=== PATIENT | male | born 1940 | race Caucasian/White ===

== ENCOUNTER → 2019-12-07 08:55 | Outpatient (CLI) | payer MEDICARE, OTHER, SELFPAY ==
--- NOTE | 2019-12-07 | DI.RAD.S_ITS ---
PROCEDURE: XR CHEST 2V INDICATIONS: ABNORMAL EKG,HEART MURMUR, DIZZINESS TECHNIQUE: 2 views of the chest were acquired. COMPARISON: None. FINDINGS: Surgical changes and devices: None. Lungs and pleura: Lungs are clear. No pleural effusions or pneumothorax. Mediastinum: Mediastinal contours are normal. Heart size is normal. Bones and chest wall: No suspicious bony abnormalities. Soft tissues appear unremarkable. IMPRESSION: No acute disease Dictated by: Sreekanth Allen M.D. on 12/07/2019 at 10:43 Approved by: Sreekanth Allen M.D. on 12/07/2019 at 10:44
--- NOTE | 2019-12-07 16:13 | DI.ECHO.S_ITS ---
Echocardiogram Report + + :Name: LIZA ZAPATA Study Date: 12/07/2019 Height: 71 in : :[facility] Weight: 201 lb : : Gender: Male BSA: 2.1 m2 : :: 1940 Age: 79 yrs BP: 150/76 mmHg: :Reason For Study: Dizziness : : Performed By: Daniela Solano : :Referring: ROSALVA REYNOLDS : + + Interpretation Summary Mild concentric left ventricular hypertrophy with ejection fraction 65-70%. Grade I diastolic dysfunction. Severely dilated left atrium. Moderately dilated right atrium. Mild aortic stenosis. Mildly enlarged ascending aorta and aortic arch. The right ventricular systolic pressure is estimated to be at least 45 mmHg based on an estimated right atrial pressure of 3 mm Hg. Procedure: A two-dimensional transthoracic echocardiogram with color flow and Doppler was performed. The study quality was technically adequate. There is no prior echocardiogram noted for this patient. The patient had a bundle branch block rhythm during the exam. The patient was in normal sinus rhythm during the exam. Left Ventricle: The left ventricle is normal in size. There is mild concentric left ventricular hypertrophy. There is no ventricular septal defect visualized. The ejection fraction is estimated to be 65-70%. There are no focal wall motion abnormalities. Diastolic parameters suggest a relaxation abnormality of the left ventricle, consistent with probable normal filling pressures. Right Ventricle: The right ventricle is at the upper limits of normal in size. The right ventricular systolic function is normal. Atria: The left atrium is severely dilated. The right atrium is moderately dilated. There is no Doppler evidence for an interatrial shunt. Mitral Valve: The mitral valve is normal in structure and function. There is trace mitral regurgitation. Aortic Valve: The aortic valve is trileaflet. There is mild to moderately reduced leaflet mobility. There is mild aortic stenosis. The peak aortic velocity is 2.8 m/sec. The aortic valve mean gradient is 16 mmHg. There is trace aortic regurgitation. Tricuspid Valve: The tricuspid valve is normal in structure and function. There is trace tricuspid regurgitation. The right ventricular systolic pressure is estimated to be at least 45 mmHg based on an estimated right atrial pressure of 3 mm Hg. Pulmonic Valve: The pulmonic valve is not well seen, but is grossly normal. There is mild pulmonic regurgitation. Great Vessels: The aortic root is normal size. The ascending aorta is mildly enlarged. The aortic arch is mildly enlarged. The IVC is of normal diameter and collapses greater than 50% with a sniff. This suggests a low right atrial pressure of 3 mm Hg. Pericardium/ Pleura There is a trivial pericardial effusion noted. MMode/2D Measurements & Calculations LVIDd: 5.2 cm LVOT diam: 2.2 cm LVIDs: 3.1 cm Ao root diam: 3.6 cm FS: 40.0 % Aortic Jxn: 2.5 cm IVSd: 1.1 cm asc Aorta Diam: 3.7 cm LVPWd: 1.3 cm Ao Arch Diam (Prox Trans): 3.4 cm LV ley. diameter/BSA (cm/m^2): 2.4 LV sys. diameter/BSA (cm/m^2): 1.5 LA A2 area: 26.9 cm2 RA long axis: 5.6 cm LA A4 area: 29.6 cm2 RA area: 22.3 cm2 LA length (vol): 6.4 cm RA vol: 74.6 ml LA vol: 106.0 ml RA : 35.3 ml/m2 LA vol index: 50.2 ml/m2 IVC diam: 1.9 cm RVD1 (basal): 4.2 cm RVD2 (mid): 3.1 cm TAPSE: 3.4 cm Doppler Measurements & Calculations Ao V2 max: 275.2 cm/sec LVOT Max Aiden: 145.2 cm/sec Ao V2 mean: 187.7 cm/sec LV V1 max P.4 mmHg Ao max P.3 mmHg LV V1 VTI: 35.0 cm Ao mean P.9 mmHg WILLI(I,D): 1.9 cm2 Ao V2 VTI: 68.0 cm WILLI(V,D): 2.0 cm2 sev ratio: 0.52 WILLI indexed to BSA (cm^2/m^2): 0.91 AI P1/2t: 528.7 msec AI dec slope: 250.5 cm/sec2 MV E max aiden: 88.2 cm/sec TR max aiden: 325.7 cm/sec MV A max aiden: 84.8 cm/sec TR max P.4 mmHg MV E/A: 1.0 PA V2 max: 106.7 cm/sec Med Peak E' Aiden: 5.7 cm/sec PA V2 mean: 83.2 cm/sec E/E' med: 15.5 PA mean P.0 mmHg Lat Peak E' Aiden: 6.4 cm/sec PA Accel Time: 0.12 sec E/E' lat: 13.7 E/e' average: 14.6 MV dec time: 0.19 sec MV P1/2t: 56.1 msec MV P1/2t max aiden: 88.5 cm/sec SV(LVOT): 130.1 ml MVA(2t): 3.9 cm2 Electronically signed by: Deisy Emery on Reading Physician:12/07/2019 12:13 PM
== END ==
PROVIDERS: Family Provider Family Medicine; PCP Student in an Organized Health Care Education/Training Program; Referring Provider Student in an Organized Health Care Education/Training Program; Visit Provider Student in an Organized Health Care Education/Training Program
DX: I35.0 Nonrheumatic aortic (valve) stenosis (principal); I77.89 Other specified disorders of arteries and arterioles; R42 Dizziness and giddiness; R94.31 Abnormal electrocardiogram [ECG] [EKG]; R01.1 Cardiac murmur, unspecified
CPT/HCPCS: 71046; 93306

== ENCOUNTER → 2020-01-22 09:21 | Outpatient (CLI) | payer MEDICARE, OTHER, SELFPAY ==
--- NOTE | 2020-01-22 | DI.US.S_ITS ---
PROCEDURE: US CAROTID DOPPLER BI INDICATIONS: AORTIC VALVE STENOSIS; BRUIT TECHNIQUE: Color and pulse Doppler interrogation was performed of both carotid systems, with image documentation and velocity measurements. COMPARISON: None. FINDINGS: Stenosis calculations are based on SRU (Society of Radiologists in Ultras[employer]) criteria. The flow velocities and the arterial waveforms are normal within both carotid arterial systems. Atherosclerotic plaque is seen on both sides. The estimated degree of internal carotid artery stenosis is less than 50%. Antegrade flow is confirmed within both vertebral arteries. IMPRESSION: No hemodynamically significant stenosis is seen. Atherosclerotic plaque is noted bilaterally. Dictated by: Corby West M.D. on 01/22/2020 at 10:08 Approved by: Corby West M.D. on 01/22/2020 at 10:09
== END ==
PROVIDERS: Family Provider Family Medicine; PCP Student in an Organized Health Care Education/Training Program; Referring Provider Student in an Organized Health Care Education/Training Program; Visit Provider Internal Medicine Cardiovascular Disease
DX: I65.23 Occlusion and stenosis of bilateral carotid arteries (principal); I35.0 Nonrheumatic aortic (valve) stenosis; R09.89 Other specified symptoms and signs involving the circulatory and respiratory systems
CPT/HCPCS: 93880

== ENCOUNTER → 2024-12-03 08:57 | Outpatient (CLI) | payer MEDICARE, OTHER, SELFPAY ==
--- NOTE | 2024-12-03 08:59 | DI.ECHO.S_ITS ---
[facility] +---------+ [facility] : : [id number] : [place] : : [id number] : : Phone: [phone] Echocardiogram Report + + :Name: LIZA ZAPATA Study Date: 12/03/2024 Height: 71 in : :[facility] Reading[facility]: Weight: 179 lb : : Gender: Male BSA: 2.0 m2 : :: 1940 Age: 84 yrs BP: 126/78 mmHg: :Reason For Study: AORTIC VALVE STENOSIS : :Ordering Physician: BUZZ, : :SCAR Performed By: Molly Wang : :Referring: SCAR LEBRON : + + Interpretation Summary 1) Mildly increased left ventricular thickness (concentric) wiht normal size, normal wall motion, and normal systolic function (EF 60-65%). 2) Mildly enlarged right ventricle with normal function. 3) The left atrium is severely dilated. 4) There is severe aortic stenosis (valve area 0.8cm2, mean gradient 49mmHg, severity ratio 0.23). 5) There is moderate to severe mitral regurgitation. 6) The right ventricular systolic pressure is estimated to be at least 63 mmHg based on an estimated right atrial pressure of 3 mm Hg. 7) Compared to the Echo done 12/07/2019, aortic stenosis has progressed from mild to severe on this study. Procedure: A two-dimensional transthoracic echocardiogram with color flow and Doppler was performed. The study quality was technically adequate. Comparison is made with the echocardiogram of 12/07/2019. The heart rate ranged between 57-72 bpm during the study. Left Ventricle: The left ventricle is normal in size. There is mild concentric left ventricular hypertrophy. The ejection fraction is estimated to be 60-65%. Left ventricular systolic function appears normal without focal wall motion abnormalities. Right Ventricle: The right ventricle is mildly dilated. The right ventricular systolic function is normal. Atria: The left atrium is severely dilated. The right atrium is mildly dilated. There is no Doppler evidence for an interatrial shunt. Mitral Valve: The mitral valve leaflets appear moderately thickened, but open well. There is moderate to severe mitral regurgitation. Aortic Valve: The aortic valve is severely calcified. There is mildly reduced leaflet mobility. There is severe aortic stenosis. The peak aortic velocity is 4.5 m/sec. The aortic valve mean gradient is 49 mmHg. The calculated aortic valve area is 0.79 cm2. There is mild aortic regurgitation. Tricuspid Valve: The tricuspid valve leaflets are thin and pliable. There is moderate tricuspid regurgitation. The right ventricular systolic pressure is estimated to be at least 63 mmHg based on an estimated right atrial pressure of 3 mm Hg. Pulmonic Valve: The pulmonic valve is not well visualized. There is mild to moderate pulmonic regurgitation. Great Vessels: The aortic root is normal size. The dimensions of the ascending aorta are normal. The IVC is of normal diameter and collapses greater than 50% with a sniff. This suggests a low right atrial pressure of 3 mm Hg. Pericardium/ Pleura There is a trivial pericardial effusion noted. There is no pleural effusion. MMode/2D Measurements & Calculations LVIDd: 5.3 cm LVOT diam: 2.1 cm LVIDs: 3.5 cm Ao root diam: 3.3 cm FS: 34.8 % asc Aorta Diam: 3.4 cm IVSd: 1.3 cm Ao Arch Diam (Prox Trans): 3.6 cm LVPWd: 1.0 cm LV ley. diameter/BSA (cm/m^2): 2.6 LV sys. diameter/BSA (cm/m^2): 1.7 LA A2 area: 34.7 cm2 RA long axis: 6.2 cm LA A4 area: 30.0 cm2 RA area: 22.6 cm2 LA length (vol): 7.0 cm RA vol: 69.5 ml LA vol: 125.7 ml RA : 34.6 ml/m2 LA vol index: 62.5 ml/m2 IVC diam: 1.9 cm RVD1 (basal): 4.5 cm RVD2 (mid): 3.9 cm TAPSE: 2.5 cm Doppler Measurements & Calculations Ao V2 max: 452.3 cm/sec LVOT Max Aiden: 101.4 cm/sec Ao V2 mean: 334.0 cm/sec LV V1 max P.1 mmHg Ao max P.5 mmHg LV V1 VTI: 24.2 cm Ao mean P.8 mmHg WILLI(I,D): 0.80 cm2 Ao V2 VTI: 106.8 cm WILLI(V,D): 0.79 cm2 sev ratio: 0.23 WILLI indexed to BSA (cm^2/m^2): 0.40 AI P1/2t: 530.9 msec AI dec slope: 245.1 cm/sec2 MV E max aiden: 128.8 cm/sec TR max aiden: 385.5 cm/sec MV A max aiden: 63.0 cm/sec TR max P.5 mmHg MV E/A: 2.0 PA V2 max: 118.2 cm/sec Med Peak E' Aiden: 7.0 cm/sec PA V2 mean: 86.1 cm/sec E/E' med: 18.5 PA mean P.3 mmHg Lat Peak E' Aiden: 7.4 cm/sec E/E' lat: 17.4 E/e' average: 18.0 MV dec time: 0.18 sec MVA(VTI): 2.5 cm2 MR ERO: 0.13 cm2 MV V2 mean: 83.5 cm/sec MR PISA: 1.8 cm2 MV mean P.3 mmHg MR flow rate: 86.4 cm3/sec MV V2 VTI: 34.5 cm MR PISA radius: 0.53 cm SV(LVOT): 84.9 ml Reading Physician:10:57 AM
== END ==
PROVIDERS: PCP Family Medicine; Referring Provider Family Medicine; Visit Provider Internal Medicine Cardiovascular Disease
DX: I08.3 Combined rheumatic disorders of mitral, aortic and tricuspid valves (principal)
CPT/HCPCS: 93306